=== PATIENT | female | born 1990 | race Caucasian/White ===

== ENCOUNTER 2017-12-27 07:50 | Emergency (ER) | payer OTHER ==
[~2017-12-27] VITALS: Ht 152.4 cm; Wt 55.5 kg
[2017-12-27 10:39] VITALS: BP 110/75
== END 2017-12-27 10:40 | disposition home or self-care (01) ==
LOC: ED 07:50
DX: O46.92 Antepartum hemorrhage, unspecified, second trimester (principal); Z3A.21 21 weeks gestation of pregnancy